=== PATIENT | female | born 1950 | race Caucasian/White ===

== ENCOUNTER 2016-11-26 12:48 | Outpatient (CLI) | payer MEDICARE, OTHER | END 2016-11-26 12:49 | disposition home or self-care (01) | DX: R73.9 Hyperglycemia, unspecified (principal) ==

== ENCOUNTER 2017-04-28 11:32 | Outpatient (CLI) | payer OTHER ==
--- NOTE | 2017-04-28 13:17 | CT Report ---
CT OF SINUSES WITHOUT CONTRAST: 04/28/2017 CLINICAL INDICATION: Chronic sinusitis. TECHNIQUE: Axial CT images of the paranasal sinuses were obtained without contrast, following which s agittal and coronal reconstructions were performed. FINDINGS: There is rightward deviation of the anterior nasal septum. The paranasal sinuses are fabiano lly aerated. The ostiomeatal units are patent. No osseous destruction is seen. The visualized orbital contents are unremarkable. IMPRESSION: NO EVIDENCE OF SINUSITIS. In accordance with CT protocol optimization, one or more of the following dose reduction techniques w ere utilized for this exam: automated exposure control, adjustment of mA and/or KV based on patient size, or use of iterative reconstructive technique. JOB #: [id number] EXT JOB #:[id number]
== END 2017-04-28 11:33 | disposition home or self-care (01) ==
LOC: DI 11:32
PROVIDERS: ATTEND Internal Medicine
DX: J32.9 Chronic sinusitis, unspecified (principal); J34.2 Deviated nasal septum
CPT/HCPCS: 70486

== ENCOUNTER 2017-08-24 06:08 | Outpatient (CLI) | payer OTHER | END 2017-08-24 06:09 | disposition critical access hospital (66) | LOC: EMS 06:08 | PROVIDERS: ATTEND Surgery | DX: M25.532 Pain in left wrist (principal); R55 Syncope and collapse; R42 Dizziness and giddiness; R11.0 Nausea; W18.39XA Other fall on same level, initial encounter; Y92.002 Bathroom of unspecified non-institutional (private) residence as the place of occurrence of the external cause | CPT/HCPCS: A0425; A0429 ==

== ENCOUNTER 2017-08-24 06:45 | Emergency (ER) | payer OTHER ==
[2017-08-24] MEDS ORDERED: KETOROLAC 60 MG/2 ML VIAL IVP STA (07:21)
[2017-08-24] MEDS ORDERED: ACETAMINOPHEN 325 MG TABLET PO STA (07:21)
[2017-08-24] MEDS ORDERED: SODIUM CHLORIDE 0.9% 1,000 ML IV ONE (07:22)
--- NOTE | 2017-08-24 07:28 | ED Physician Documentation ---
PD HPI SYNCOPE - Stated complaint Stated Complaint: SYNCOPE - Chief complaint Chief Complaint: Trauma Ext - History obtained from History obtained from: Patient - History of Present Illness Witnessed: Witnessed Timing - onset: How many hours ago (She had pain in right shoulder starting yesterday, and was seen in Urgent Care in [place]. Dx with muscle strain and Rx with Tizanidine and also took a leftover pain med from a surgery in February. These did not help the pain though. This morning she got up to go to the bathroom, felt lightheaded and then fainted. Struck left forearm with the fall. Denies injury to the head, chest, abd.) Duration: Hours Preceding symptoms: Light headed, Other (pain right shoulder since yesterday without injury.). No: Headache, Chest pain, Abdominal pain Contributing factors: Recent med change (took new med of pain pill and muscle relaxant yesterday and last night for right shoulder pain.), Just stood up Injury occurred: Fell. No: Head injury, Neck injury Similar symptoms before: Has not had sx before Recently seen: Clinic (yesterday) Review of Systems Constitutional: denies: Fever, Chills Nose: denies: Rhinorrhea / runny nose, Congestion Throat: denies: Sore throat Cardiac: denies: Chest pain / pressure Respiratory: denies: Cough GI: denies: Abdominal Pain : denies: Dysuria, Frequency Skin: denies: Rash Musculoskeletal: reports: Joint pain (right shoulder/upper back pain since yesterday without injury.) Neurologic: reports: Generalized weakness. denies: Focal weakness, Numbness, Headache PD PAST MEDICAL HISTORY - Past Medical History Past Medical History: Yes Cardiovascular: None Respiratory: Other Endocrine/Autoimmune: Systemic lupus erythematosus GI: None : None HEENT: None Psych: None Musculoskeletal: Osteoarthritis Derm: Other Other Past Medical History: Lupus - Past Surgical History Past Surgical History: Yes General: Colonoscopy Ortho: Other /MANAGER PROGRAM MANAGEMENT: Hysterectomy - Present Medications Home Medications: Ambulatory Orders Medication Instructions Recorded Confirmed Aspirin DAILY 07/05/14 07/05/14 Hydroxychloroquine [Plaquenil] 400 DAILY 07/05/14 07/05/14 Magnesium 250 07/05/14 07/05/14 Omeprazole [Prilosec] DAILY 07/05/14 07/05/14 Piroxicam DAILY 07/05/14 07/05/14 Vitamin A 8,000 DAILY 07/05/14 07/05/14 HYDROcod/ACETAM 5/325 [[place] 5/325] 1 tab PO Q6H PRN #20 tablet 08/24/17 Naproxen 375 mg PO BID #20 tablet 08/24/17 Ondansetron HCl [Zofran] 4 mg PO Q6H PRN #20 tablet 08/24/17 - Allergies Allergies/Adverse Reactions: Allergies Allergy/AdvReac Type Severity Reaction Status Date / Time tramadol HCl * [From Ultram] Allergy Unknown Verified 08/24/17 07:11 - Social History Does the pt smoke?: No Smoking Status: Never smoker Does the pt drink ETOH?: No Does the pt have substance abuse?: No - Immunizations Immunizations are current?: Yes - POLST Patient has POLST: No PD ED PE NORMAL - Vitals Vital signs reviewed: Yes - General General: Alert and oriented X 3, Well developed/nourished - HEENT HEENT: Atraumatic - Neck Neck: Supple, no meningeal sign, No bony TTP - Cardiac Cardiac: RRR, No murmur - Respiratory Respiratory: Clear bilaterally, Other (no chestwall tenderness) - Abdomen Abdomen: Soft, Non tender - Derm Derm: Normal color, Warm and dry, No rash (no skin tenderness in right shoulder/ thoracic area) - Extremities Extremities: No deformity, Other (left mid to distal forearm with tenderness and small lac ulnar side, but no obvious deformity. Right posterior shoulder/ scapular area with some tenderness but no deformity. No rash. ) - Neuro Neuro: Alert and oriented X 3, No motor deficit, Normal speech - Psych Psych: Normal mood Results - Vitals Vitals: Vital Signs - 24 hr 08/24/17 08/24/17 08/24/17 06:45 07:00 07:51 Temperature 36.1 C L Heart Rate 82 68 67 Respiratory 16 18 16 Rate Blood Pressure 135/89 H 135/89 H 121/70 O2 Saturation 100 98 100 08/24/17 08:06 Temperature 36.9 C Heart Rate 76 Respiratory 15 Rate Blood Pressure 139/74 H O2 Saturation 100 Oxygen O2 Source Room air - Rads (name of study) right shoulder Radiology: Prelim report reviewed, EMP read contemporaneously (prior surgical changes; no acute) left forearm Radiology: Prelim report reviewed, EMP read contemporaneously (distal ulnar fracture) Procedures - Splint (location) left forearm Splint applied by: Tech Type of splint: Fiberglass, Sugar tong Other: Patient tolerated well, No complications, Neurovascular intact, Good alignment, Sling provided PD MEDICAL DECISION MAKING - ED course Complexity details: considered differential (The syncope seems reasonably related to 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 Heart rate and BP are okay now. I don't think much workup is needed. Right shoulder pain is uncertain cause , consider myofascial. Has had it just 1-2 days without rash, but consider alternatives of pinched nerve, shingles, muscle strain. Will xray left forearm from the fall this morning. ), d/w patient Departure - Departure Disposition: 01 Home, Self Care Clinical Impression: Acute right-sided thoracic back pain Syncope Qualifiers: Syncope type: unspecified Qualified Code(s): R55 - Syncope and collapse Forearm contusion Qualifiers: Encounter type: initial encounter Laterality: left Qualified Code(s): S50.12XA - Contusion of left forearm, initial encounter Distal end of ulna fracture, closed Qualifiers: Encounter type: initial encounter Fracture morphology: other fracture Laterality: left Qualified Code(s): S52.692A - Other fracture of lower end of left ulna, initial encounter for closed fracture Condition: Stable Record reviewed to determine appropriate education?: Yes Instructions: ED Fx Forearm Radius Ulna No Redu Requ Follow-Up: Baldo Busch MD [Primary Care Provider] - Jose Kaba MD [Provider Admit Priv/Credential] - Prescriptions: HYDROcod/ACETAM 5/325 [[place] 5/325] 1 tab PO Q6H PRN #20 tablet PRN Reason: Pain Naproxen 375 mg PO BID #20 tablet Ondansetron HCl [Zofran] 4 mg PO Q6H PRN #20 tablet PRN Reason: Nausea / Vomiting Comments: Keep splint on and clean/dry, Sling to help keep the arm elevated. Ice and elevate the wrist often today. Use naproxen twice daily with food as an anti- inflammatory and for pain. Add hydrocodone for pain along with Zofran for nausea. Follow-up with orthopedics in about 3 or 4 days, call tomorrow for an appointment. The fainting this morning seem likely related to the combination of medications with the pain and muscle relaxant. Stop the muscle relaxant at this point. We will change to a different pain medicine to see if it is not quite as much side effect. Discharge Date/Time: 08/24/17 08:41
[2017-08-24] MEDS ORDERED: ACETAMINOPHEN 325 MG TABLET PO ONE (07:35)
[2017-08-24] MEDS ORDERED: KETOROLAC 30 MG/ML VIAL ONE (07:35)
[2017-08-24 08:07] VITALS: BP 139/74
[2017-08-24] MEDS ORDERED: HYDROcod/ACETAM 5/325 MG TABLET PO STA (08:09)
[2017-08-24] MEDS ORDERED: ONDANSETRON ODT 4 MG TABLET TL STA (08:09)
--- NOTE | 2017-08-24 08:21 | XRAY Preliminary Report ---
Exam: XR SHOULDER 3 VIEW RT IMPRESSION: Right shoulder radiography is without evidence of acute osseous abnormality. [facility] SITE ID: [id number]
[2017-08-24] MEDS ORDERED: ONDANSETRON ODT 4 MG TABLET ONE (08:23)
--- NOTE | 2017-08-24 08:23 | XRAY Preliminary Report ---
Exam: XR FOREARM LT IMPRESSION: Acute, displaced, extra-articular fracture of the distal ulna. [facility] SITE ID: [id number]
[2017-08-24] MEDS ORDERED: HYDROcod/ACETAM 5/325 MG TABLET ONE (08:24)
--- NOTE | 2017-08-24 08:24 | XRAY Report ---
EXAM: RIGHT SHOULDER RADIOGRAPHY EXAM DATE: 08/24/2017 07:11 AM. CLINICAL HISTORY: Fall. Pain. COMPARISON: None. TECHNIQUE: 3 views. FINDINGS: Bones: No fracture. Joints: Mild to moderate degenerative change. No dislocation. Soft tissues: The visualized hemithorax is grossly clear. IMPRESSION: Right shoulder radiography is without evidence of acute osseous abnormality. [facility] Referring Provider Line: [phone] SITE ID: [id number]
--- NOTE | 2017-08-24 08:26 | XRAY Report ---
EXAM: LEFT FOREARM RADIOGRAPHY EXAM DATE: 08/24/2017 07:11 AM. CLINICAL HISTORY: Fell onto left arm. COMPARISON: None. TECHNIQUE: 2 views. FINDINGS: Bones: Oblique fracture through the distal ulnar metaphysis with 7 mm medial and 2 mm dorsal offset. No significant angulation. No other fracture. Joints: No dislocation. Soft Tissues: Distal soft tissue swelling. IMPRESSION: Acute, displaced, extra-articular fracture of the distal ulna. [facility] Referring Provider Line: [phone] SITE ID: [id number]
== END 2017-08-24 08:41 | disposition home or self-care (01) ==
LOC: EDUNIT# → ED 06:45
DX: R55 Syncope and collapse (principal); S50.12XA Contusion of left forearm, initial encounter; S52.692A Other fracture of lower end of left ulna, initial encounter for closed fracture; W18.30XA Fall on same level, unspecified, initial encounter; Y93.89 Activity, other specified; M32.9 Systemic lupus erythematosus, unspecified; Z79.82 Long term (current) use of aspirin
CPT/HCPCS: 29105; 36415; 73030; 73090; 96361; 96374; 99284; 99285; A9270; Q0162

== ENCOUNTER 2017-08-28 08:06 | Day surgery (SDC) | payer OTHER ==
[~2017-08-28 08:06] MED LIST: ceFAZolin 2 GM/50 ML 2 GM/50 ML BAG IV ONE
[2017-08-28] MEDS ORDERED: LACTATED RINGERS 1,000 ML IV ONE (08:14)
[2017-08-28 08:40] LABS: BASOPHILS % (AUTO) 0.6 %; EOSINOPHILS # (AUTO) 0.1 10^3/uL (0.0-0.7); EOSINOPHILS % (AUTO) 2.1 %; HGB - HEMOGLOBIN 12.5 g/dL (12.0-16.0); MEAN CORPUSCULAR HEMOGLOBIN 31.7 pg (27.0-31.0); MEAN CORPUSCULAR HGB CONC 33.8 g/dL (32.0-36.0); MEAN CORPUSCULAR VOLUME 93.7 fL (81.0-99.0); MEAN PLATELET VOLUME 8.3 fL (7.9-10.8); MONOCYTES # (AUTO) 0.3 10^3/uL (0.0-1.0); MONOCYTES % (AUTO) 8.3 %; NEUTROPHILS # (AUTO) 2.7 10^3/uL (1.5-6.6); RED BLOOD COUNT 3.95 10^6/uL (4.20-5.40); RED CELL DISTRIBUTION WIDTH 13.1 % (12.0-15.0); UNCORRECTED WHITE BLOOD COUNT 4.1 x10^3/uL; WHITE BLOOD COUNT 4.1 x10^3/uL (4.8-10.8)
[2017-08-28 08:49] LABS: CALCIUM 9.1 mg/dL (8.5-10.3); CREATININE 0.8 mg/dL (0.4-1.0)
[2017-08-28] MEDS ORDERED: PROPOFOL 200 MG/20 ML VIAL IVP ONE (09:30)
[2017-08-28] MEDS ORDERED: KETAMINE 500 MG/10 ML VIAL IVP ONE (09:30)
[2017-08-28] MEDS ORDERED: MIDAZOLAM 2 MG/2 ML VIAL IVP ONE (09:30)
[2017-08-28] MEDS ORDERED: LIDOCAINE-MPF 2% 5 ML VIAL IM ONE (09:30)
[2017-08-28] MEDS ORDERED: ROPIVACAINE 0.5% PF 20 ML AMPULE EP ONE (09:30)
[2017-08-28] MEDS ORDERED: KETOROLAC 15 MG/ML VIAL ONE (10:34)
--- NOTE | 2017-08-28 11:10 | OPERATIVE REPORT ---
DATE OF SURGERY: 08/28/2017 00:00:00 PREOPERATIVE DIAGNOSIS: Left distal ulna closed ulnar shaft fracture, unstable and displaced. POSTOPERATIVE DIAGNOSIS: Left distal ulna shaft displaced and unstable grade 1 open fracture. NAME OF PROCEDURE: Incision and debridement of skin and subcutaneous tissue followed by open reductio n internal fixation of the left distal ulna. SURGEON: Danielle Kaiser MD. ANESTHESIA: Block and MAC sedation by Briana Collins. INDICATIONS FOR SURGERY: The patient is a 67-year-old female who had suffered some type of syncopal e vent and presented to the emergency room in the ecological modeler hours of 08/24. She was found to have a distal ulna fracture that was displaced and also to have a small wound on the ulnar border of her fo rearm. She was splinted and referred to clinic and it is unclear whether the orthopedic surgeon on-[facility] was ever called for this case. The patient was seen in clinic, and she was unaware of a wound on h er forearm. Surgery was scheduled for today. FINDINGS AT SURGERY: At surgery, the patient's ulna fracture was highly unstable and unable to be red uced in any fashion with closed manipulation. The patient did have a less than 1 cm wound that appear ed to be an inside out puncture directly over the fracture site. It was now sealed over without purul ence. The patient's fracture had nondisplaced comminution fracture lines, which remained somewhat in place, as it was reduced and fixed with a plate, and the patient's bone being of moderately poor qual ity. DESCRIPTION OF OPERATIVE PROCEDURE: The patient was taken to the operating room, was given a MAC anes thetic after having an upper extremity block. The forearm was sterilely prepped and draped in the sta ndard fashion. The ulna exposure was a direct subcutaneous linear incision with the excision of the s kin and subcutaneous tissue surrounding the small wound at the puncture site. The dissection was take n down to the bone and very little soft tissue was reflected in order to allow placement of a clamp a nd a 1/3 tubular locking plate was applied. This was able to be fixed well to the distal and proximal fragment with locking screws and the reduction gained on C-arm images was acceptable. The area was i rrigated thoroughly and closure was with interrupted Vicryl layers of subcutaneous and Prolene layers of skin interrupted. Sterile dressings were applied. The patient was then placed in a sugar-tong spl int, after which she was taken to the recovery room in stable condition. ESTIMATED BLOOD LOSS: Minimal. COMPLICATIONS: None. SPONGE AND NEEDLE COUNTS: Correct. JOB #: [id number] EXT JOB #:[id number]
[2017-08-28 11:24] VITALS: BP 130/70
== END 2017-08-28 08:07 | disposition home or self-care (01) ==
LOC: SDS 08:06
PROVIDERS: ATTEND Orthopaedic Surgery
PROC: 0PSL04Z Reposition Left Ulna with Internal Fixation Device, Open Approach (ICD-10-PCS; principal; 2017-08-28 09:15)
DX: S52.692A Other fracture of lower end of left ulna, initial encounter for closed fracture (principal); M32.9 Systemic lupus erythematosus, unspecified
CPT/HCPCS: 25652; 80048; 85025; 93005; C1713; J0690; J7120

== ENCOUNTER 2017-09-26 11:35 | Emergency (ER) | payer OTHER ==
[2017-09-26 11:48] VITALS: BP 115/73
--- NOTE | 2017-09-26 12:27 | ED Physician Documentation ---
History of Present Illness - Stated complaint Stated Complaint: L ARM SWELLING - Chief complaint Chief Complaint: Ext Problem - History obtained from History obtained from: Patient (pt here for elft arm/hand swelling. she had an ORIF of an ulna fracture at the end of AUG. had a cast in place since a week after the surgery. she states that she went ot see her ortho provider earlier this week when she hit her left arm (in the cast) on an object she states that she had x-rays and was told everything was fine. she states that her left hand was swelling since then and now it hurts.) - History of Present Illness Timing: Other (earlier this week.) Review of Systems Constitutional: denies: Fever, Chills, Fatigue Cardiac: denies: Chest pain / pressure, Palpitations Respiratory: denies: Dyspnea, Cough GI: denies: Abdominal Pain, Nausea, Vomiting, Diarrhea Skin: reports: Other (swelling of left hand) Musculoskeletal: reports: Other (left arm in long arm cast and swelling of the left hand.) PD PAST MEDICAL HISTORY - Past Medical History Past Medical History: Yes Cardiovascular: None Respiratory: Other Endocrine/Autoimmune: Systemic lupus erythematosus GI: None : None HEENT: None Psych: None Musculoskeletal: Osteoarthritis Derm: Other - Past Surgical History Past Surgical History: Yes General: Colonoscopy Ortho: Other /CLAIMS ATTORNEY: Hysterectomy - Present Medications Home Medications: Ambulatory Orders Medication Instructions Recorded Confirmed Hydroxychloroquine [Plaquenil] 400 mg PO DAILY 07/05/14 09/26/17 Magnesium 250 mg PO DAILY 07/05/14 09/26/17 Piroxicam 20 mg PO DAILY 07/05/14 09/26/17 Vitamin A 8,000 mg PO DAILY 07/05/14 09/26/17 HYDROcod/ACETAM 5/325 [[place] 5/325] 1 tab PO Q6H PRN #20 tablet 08/24/17 Alendronate [Fosamax] 70 mg PO DAILY 08/28/17 09/26/17 - Allergies Allergies/Adverse Reactions: Allergies Allergy/AdvReac Type Severity Reaction Status Date / Time tramadol HCl * [From Ultram] Allergy Unknown Verified 09/26/17 11:47 - Social History Does the pt smoke?: No Smoking Status: Never smoker Does the pt drink ETOH?: No Does the pt have substance abuse?: No - Immunizations Immunizations are current?: No Immunizations: TDAP >10years/unknown, Other immun current - POLST Patient has POLST: No PD ED PE NORMAL - General General: Alert and oriented X 3, No acute distress - Derm Derm: Other (left hand leather polisher in coler than laft with cap refill approx 4 seconds. ) - Extremities Extremities: Other (left arm in long arm cast. ) - Neuro Neuro: Other (sensation intact to light touch to left UE. ) - Psych Psych: Normal mood, Normal affect Results - Vitals Vitals: Vital Signs - 24 hr 09/26/17 11:44 Temperature 37.2 C Heart Rate 85 Respiratory 16 Rate Blood Pressure 115/73 O2 Saturation 98 Oxygen O2 Source Room air PD MEDICAL DECISION MAKING - ED course Complexity details: d/w patient, d/w family ED course: Pt with obvious swelling of the left hand and inability to place my fingers between the hand and the cast. I bi-valved the cast with the saw and placed YOVANI bandage over it. pt reports improvement in her symptoms. Pt has sling. improvement in color swelling after cutting cast. pt given return precautions. she has a follow up next week. Departure - Departure Disposition: 01 Home, Self Care Clinical Impression: Cast discomfort Condition: Good Instructions: Cast Care Follow-Up: Baldo Busch MD [Primary Care Provider] - Comments: keep your follow up with your ortho provider next week. Keep the yovani bandage on the arm. Return to the ER for any new or worsening symptoms.
== END 2017-09-26 12:40 | disposition home or self-care (01) ==
LOC: ED 11:35
DX: S52.202D Unspecified fracture of shaft of left ulna, subsequent encounter for closed fracture with routine healing (principal); X58.XXXD Exposure to other specified factors, subsequent encounter; M32.9 Systemic lupus erythematosus, unspecified
CPT/HCPCS: 99282; 99283

== ENCOUNTER 2017-10-23 08:58 | Outpatient (CLI) | payer OTHER ==
--- NOTE | 2017-10-24 14:41 | Mammography Report ---
DATE OF SERVICE: 10/23/2017 EXAM: DIGITAL BILATERAL SCREENING MAMMOGRAM:: 10/23/2017 CLINICAL INDICATION: A 67-year-old with history of late childbearing, family history of breast cance r, for screening. COMPARISON: 04/2015, 06/2013, 01/2012, 01/2011. TECHNIQUE: Routine CC and MLO projections were obtained of the breasts. Bilateral laterally exaggera kelsie craniocaudal views. FINDINGS: The breasts again demonstrate heterogeneously dense fibroglandular parenchyma bilaterally. Coarse and punctate, typically benign calcifications are present. No suspicious masses, clustered microcalcifica tions, no regions of architectural distortion are identified. IMPRESSION: BENIGN FINDINGS. RECOMMENDATIONS: Routine annual screening unless otherwise clinically indicated. BIRADS CATEGORY 2-BENIGN FINDINGS. STANDARD QUALIFYING STATEMENTS: 1. This examination was reviewed with the aid of Computer-Aided Detection (CAD). 2. A negative or benign imaging report should not delay biopsy if clinically suspicious findings are present. Consider surgical consultation if warranted. More than 5% of cancers are not identified by imaging. 3. Dense breasts may obscure an underlying neoplasm. TD: 10/24/2017 15:29
== END 2017-10-23 08:59 | disposition home or self-care (01) ==
LOC: DI.S 08:58
PROVIDERS: ATTEND Nurse Practitioner Family
DX: Z12.31 Encounter for screening mammogram for malignant neoplasm of breast (principal); Z80.3 Family history of malignant neoplasm of breast
CPT/HCPCS: 77067

== ENCOUNTER 2017-11-04 15:09 | Outpatient (CLI) | payer OTHER ==
[2017-11-04 18:40] LABS: CALCIUM 8.7 mg/dL (8.5-10.3)
== END 2017-11-04 15:10 | disposition home or self-care (01) ==
LOC: LAB.F 15:09
PROVIDERS: ATTEND Internal Medicine Rheumatology
DX: R89.9 Unspecified abnormal finding in specimens from other organs, systems and tissues (principal); Z79.899 Other long term (current) drug therapy
CPT/HCPCS: 36415; 80048

== ENCOUNTER 2017-11-14 11:27 | Outpatient (CLI) | payer OTHER ==
[2017-11-14 18:05] LABS: BASOPHILS # (AUTO) 0.1 10^3/uL (0.0-0.1); BASOPHILS % (AUTO) 1.3 %; EOSINOPHILS % (AUTO) 1.3 %; HGB - HEMOGLOBIN 9.2 g/dL (12.0-16.0); LYMPHOCYTES # (AUTO) 1.1 10^3/uL (1.5-3.5); LYMPHOCYTES % (AUTO) 27.8 %; MEAN CORPUSCULAR HEMOGLOBIN 29.9 pg (27.0-31.0); MEAN CORPUSCULAR HGB CONC 32.5 g/dL (32.0-36.0); MEAN PLATELET VOLUME 8.4 fL (7.9-10.8); MONOCYTES # (AUTO) 0.4 10^3/uL (0.0-1.0); MONOCYTES % (AUTO) 9.3 %; NEUTROPHILS # (AUTO) 2.4 10^3/uL (1.5-6.6); NEUTROPHILS % (AUTO) 60.3 %; PLT - PLATELET COUNT 259 10^3/uL (130-450); RED BLOOD COUNT 3.09 10^6/uL (4.20-5.40); RED CELL DISTRIBUTION WIDTH 13.3 % (12.0-15.0); WHITE BLOOD COUNT 3.9 x10^3/uL (4.8-10.8)
== END 2017-11-14 11:28 | disposition home or self-care (01) ==
LOC: LAB.F 11:27
PROVIDERS: ATTEND Orthopaedic Surgery
DX: M25.432 Effusion, left wrist (principal); M25.532 Pain in left wrist; M25.632 Stiffness of left wrist, not elsewhere classified
CPT/HCPCS: 36415; 85025; 85651; 86140

== ENCOUNTER 2017-11-14 13:08 | Outpatient (CLI) | payer OTHER ==
--- NOTE | 2017-11-14 13:56 | CT Preliminary Report ---
Exam: CT UPPER EXTREMITY LEFT W/O IMPRESSION: 1. Comminuted fracture of the distal radius with multiple defects in the articular surface. The lunat e articulates with the subchondral bone through one of the defects. The line 2. Displaced fracture of the waist of the scaphoid. 3. Moderate generalized osteopenia. 3. Partially healed fracture of the ulna with a plate and screws in situ. [facility] SITE ID: [id number]
--- NOTE | 2017-11-14 14:10 | CT Report ---
EXAM: LEFT WRIST CT WITHOUT CONTRAST EXAM DATE: 11/14/2017 01:34 PM. CLINICAL HISTORY: Left wrist fracture, assess healing. COMPARISON: Multiple prior x-rays, including 10/22/2017. TECHNIQUE: Thin section axial images were acquired of the wrist without contrast. Reformats of the ot her standard planes were provided. Other: None. In accordance with CT protocol optimization, one or more of the following dose reduction techniques w ere utilized for this exam: automated exposure control, adjustment of mA and/or KV based on patient s ize, or use of iterative reconstructive technique. FINDINGS: Bones: There is a plate and screws in the distal ulna. There is a partially united fracture of the di stal ulna. Plate and screws are still in situ. Sections of nonunited bone are visible. There is a comminuted fracture of the distal articular surface of the radius, with multiple defects i n the articular surface secondary to impaction and displacement of the fracture fragments. The lunate articulates with the subchondral bone through a large defect in the articular surface. There is moderate to severe generalized osteopenia. There is a nondisplaced fracture of the waist of the scaphoid. Joints: Moderate osteoarthritis of the carpometacarpal joint of the thumb and the triscaphe joint. Musculature: Normal. No fatty atrophy. Other: Diffuse soft tissue swelling. IMPRESSION: 1. Comminuted fracture of the distal radius with multiple defects in the articular surface. The lunat e articulates with the subchondral bone through one of the defects. 2. Nondisplaced fracture of the waist of the scaphoid. 3. Moderate generalized osteopenia. 4. Partially healed fracture of the ulna with a plate and screws in situ. [facility] Referring Provider Line: [phone] SITE ID: [id number]
== END 2017-11-14 13:09 | disposition home or self-care (01) ==
LOC: DI 13:08
PROVIDERS: ATTEND Orthopaedic Surgery
DX: S52.692D Other fracture of lower end of left ulna, subsequent encounter for closed fracture with routine healing (principal); S52.572A Other intraarticular fracture of lower end of left radius, initial encounter for closed fracture; S62.002A Unspecified fracture of navicular [scaphoid] bone of left wrist, initial encounter for closed fracture; M85.80 Other specified disorders of bone density and structure, unspecified site; M25.432 Effusion, left wrist; M25.632 Stiffness of left wrist, not elsewhere classified
CPT/HCPCS: 36415; 85025; 85651; 86140

== ENCOUNTER 2017-11-24 13:49 | Outpatient (CLI) | payer OTHER ==
[2017-11-24 18:13] LABS: CREATININE 1.1 mg/dL (0.4-1.0)
== END 2017-11-24 13:50 | disposition home or self-care (01) ==
LOC: LAB.F 13:49
PROVIDERS: ATTEND Orthopaedic Surgery
DX: Z01.812 Encounter for preprocedural laboratory examination (principal)
CPT/HCPCS: 36415; 82565; 84520

== ENCOUNTER 2017-11-28 11:59 | Outpatient (CLI) | payer OTHER ==
[2017-11-28] MEDS ORDERED: GADOBUTROL 7.5 MMOL/7.5 ML VIAL IVP ONE (13:11)
--- NOTE | 2017-11-28 16:50 | MRI Report ---
EXAM: LEFT WRIST MRI WITHOUT AND WITH CONTRAST EXAM DATE: 11/28/2017 01:34 PM. CLINICAL HISTORY: Left wrist pain. COMPARISON: 11/14/[address] TECHNIQUE: Multiplanar, multisequence T1-weighted and fluid-sensitive sequences of the wrist before a nd after administration of intravenous contrast. IV contrast: 7.5 mL Gadavist given IV, no reaction.. Other: Metallic artifact.. FINDINGS: Bones: Comminuted fracture distal radius. Focal free fragment arises from the volar medial aspect of the distal radius with at least 5 mm of distraction and about 2 mm of step-off. Series 601 image 7, s eries 601 image 9. Also noted is significant marrow edema in the scaphoid, lunate, capitate, triquetr um, trapezium, trapezoid. Additionally, there is a nondisplaced scaphoid waist fracture similar to th at seen on CT. Cartilage: TFCC is difficult to evaluate because of the amount of metallic artifact which is present. Ligaments: Scapholunate and lunotriquetral ligaments also are difficult to assess because of artifact and some edema. On these images, these two ligaments are not visualized. Tendons: Extensor compartments 1 through 6 have a normal appearance. Flexor pollicis longus shows selena e type I signal change. Flexor tendons at the carpal tunnel also appear unremarkable. Musculature: No edema or fatty atrophy. Other: Median nerve in the carpal tunnel is somewhat swollen. No ganglion cysts. No joint effusions o r synovitis. Generous amount of surrounding subcutaneous soft tissue swelling and edema. IMPRESSION: 1. Comminuted fracture distal radius, focal free fragment arises from the volar medial aspect of the radius with at least 5 mm of distraction and 2 mm of step-off. 2. Significant marrow edema at the scaphoid, lunate, capitate, triquetral, trapezium, and trapezoid. Nondisplaced scaphoid waist fracture, similar to that seen on CT. 3. Scapholunate and lunotriquetral ligaments are not seen. Uncertain if these are intact or obscured because of the amount of artifact which is present. 4. Flexor pollicis longus tendon shows some mild type I signal change. Other tendons of extension and flexion at the wrist appear unremarkable. 5. Some swelling of the median nerve and the carpal tunnel, no focal vertical split or full-thickness fluid-filled gap. Some surrounding soft tissue swelling and edema is seen over the dorsal and volar aspect of the wrist. [facility] Referring Provider Line: [phone] SITE ID: [id number]
== END 2017-11-28 12:00 | disposition home or self-care (01) ==
LOC: DI 11:59
PROVIDERS: ATTEND Orthopaedic Surgery
DX: S52.502A Unspecified fracture of the lower end of left radius, initial encounter for closed fracture (principal); S62.002A Unspecified fracture of navicular [scaphoid] bone of left wrist, initial encounter for closed fracture
CPT/HCPCS: 73223; A9585

== ENCOUNTER 2018-02-20 09:00 | Outpatient (CLI) | payer OTHER ==
[2018-02-20 18:31] LABS: CREATININE 1.1 mg/dL (0.4-1.0)
== END 2018-02-20 09:01 | disposition home or self-care (01) ==
LOC: LAB.F 09:00
PROVIDERS: ATTEND Internal Medicine Rheumatology
DX: M81.0 Age-related osteoporosis without current pathological fracture (principal)
CPT/HCPCS: 36415; 80048

== ENCOUNTER 2018-04-01 12:43 | Outpatient (CLI) | payer OTHER ==
[2018-04-01 13:00] LABS: BASOPHILS # (AUTO) 0.1 10^3/uL (0.0-0.1); BASOPHILS % (AUTO) 2.7 %; EOSINOPHILS % (AUTO) 1.2 %; HGB - HEMOGLOBIN 10.6 g/dL (12.0-16.0); MEAN CORPUSCULAR HEMOGLOBIN 29.5 pg (27.0-31.0); MEAN CORPUSCULAR HGB CONC 33.3 g/dL (32.0-36.0); MEAN CORPUSCULAR VOLUME 88.6 fL (81.0-99.0); MEAN PLATELET VOLUME 7.6 fL (7.9-10.8); MONOCYTES # (AUTO) 0.3 10^3/uL (0.0-1.0); MONOCYTES % (AUTO) 8.1 %; NEUTROPHILS # (AUTO) 2.5 10^3/uL (1.5-6.6); PLT - PLATELET COUNT 243 10^3/uL (130-450); RED BLOOD COUNT 3.58 10^6/uL (4.20-5.40); RED CELL DISTRIBUTION WIDTH 14.1 % (12.0-15.0)
== END 2018-04-01 12:44 | disposition home or self-care (01) ==
LOC: LAB 12:43
PROVIDERS: ATTEND Orthopaedic Surgery
DX: M79.632 Pain in left forearm (principal); M79.642 Pain in left hand; S60.822A Blister (nonthermal) of left wrist, initial encounter; S50.822A Blister (nonthermal) of left forearm, initial encounter
CPT/HCPCS: 36415; 85025; 85651; 86140; 87070; 87181; 87205

== ENCOUNTER 2018-04-21 13:59 | Outpatient (CLI) | payer OTHER ==
[2018-04-21 18:08] LABS: CALCIUM 9.1 mg/dL (8.5-10.3); CREATININE 1.1 mg/dL (0.4-1.0)
== END 2018-04-21 14:00 | disposition home or self-care (01) ==
LOC: LAB.F 13:59
PROVIDERS: ATTEND Internal Medicine Infectious Disease
DX: M86.9 Osteomyelitis, unspecified (principal)
CPT/HCPCS: 36415; 80048

== ENCOUNTER 2018-05-07 10:10 | Outpatient (CLI) | payer OTHER ==
[2018-05-07 12:01] LABS: BASOPHILS # (AUTO) 0.1 10^3/uL (0.0-0.1); EOSINOPHILS # (AUTO) 0.1 10^3/uL (0.0-0.7); EOSINOPHILS % (AUTO) 3.2 %; HGB - HEMOGLOBIN 9.6 g/dL (12.0-16.0); LYMPHOCYTES # (AUTO) 0.9 10^3/uL (1.5-3.5); MEAN CORPUSCULAR HEMOGLOBIN 30.1 pg (27.0-31.0); MEAN CORPUSCULAR HGB CONC 32.6 g/dL (32.0-36.0); MEAN CORPUSCULAR VOLUME 92.3 fL (81.0-99.0); MEAN PLATELET VOLUME 9.1 fL (7.9-10.8); MONOCYTES # (AUTO) 0.2 10^3/uL (0.0-1.0); MONOCYTES % (AUTO) 7.3 %; NEUTROPHILS # (AUTO) 1.8 10^3/uL (1.5-6.6); NEUTROPHILS % (AUTO) 59.5 %; PLT - PLATELET COUNT 162 10^3/uL (130-450); RED CELL DISTRIBUTION WIDTH 15.1 % (12.0-15.0)
[2018-05-07 12:30] LABS: BUN - BLOOD UREA NITROGEN 24 mg/dL (6-20); CALCIUM 8.9 mg/dL (8.5-10.3); CARBON DIOXIDE - CO2 27 mmol/L (21-32); CHLORIDE 105 mmol/L (101-111); CREATININE 0.8 mg/dL (0.4-1.0); CRP - C-REACTIVE PROTEIN 1.4 mg/dL (0-1.0); GFR - MDRD 72 (>89); GLUCOSE 108 mg/dL (70-100); SODIUM 138 mmol/L (135-145)
== END 2018-05-07 10:11 | disposition home or self-care (01) ==
LOC: LAB.R 10:10
PROVIDERS: ATTEND Pharmacist
DX: M86.142 Other acute osteomyelitis, left hand (principal)
CPT/HCPCS: 80048; 80202; 85025; 85651; 86140